=== PATIENT | female | born 1990 | race African-American/Black ===

== ENCOUNTER → 2017-12-24 | Outpatient (CLI) | payer OTHER ==
--- NOTE | 2017-12-25 08:56 | USB ---
Reason for exam: clinical finding. History: Family history of breast cancer in maternal grandmother. Indicated problem(s): lump or thickening in the left breast. 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 US Breast LT Left breast ultrasound includes all four quadrants, the retroareolar region and axilla. Finding demonstrates duct ectasia at 1 o'clock and at the nipple. Prominent but non-enlarged lymph nodes at the axilla. The 3 palpable areas at 11 o'clock show minimal skin thickening. No solid or cystic lesion. These results were verbally communicated with the patient and result sheet given to the patient on 12/24/17. ASSESSMENT: Benign, BI-RAD 2 RECOMMENDATION: Routine screening mammogram of both breasts at age 39. (or sooner if clinically indicated) Manage on a clinical basis. Dermatology referral can be considered for cutaneous lesions.
== END | disposition home or self-care (01) ==
LOC: RADUSWWP 15:11
PROVIDERS: ATTEND Family Medicine
DX: N64.4 Mastodynia (principal)

== ENCOUNTER 2020-04-29 06:00 | Inpatient (IN) | payer OTHER ==
[2020-04-29] MEDS ORDERED: CARBOPROST TROMETHAMINE 250 MCG/ML 1 ML AMP IM PRN (06:31)
[2020-04-29] MEDS ORDERED: LIDOCAINE 0.5% (PF) 5 MG/ML (50 ML SDV) SQ PRN (06:31)
[2020-04-29] MEDS ORDERED: METHYLERGONOVINE 0.2 MG/ML 1 ML AMP IM PRN (06:31)
[2020-04-29] MEDS ORDERED: OXYTOCIN 10 UNIT/ML 1 ML VIAL IM PRN (06:31)
[2020-04-29] MEDS ORDERED: CLINDAMYCIN 900 MG in DEXTROSE 5% IN WATER 50 ML IVPB STA ×2 (06:31)
[2020-04-29] MEDS ORDERED: TERBUTALINE 1 MG/ML VIAL SQ PRN (06:31)
[2020-04-29 06:44] LABS: Basophils % (A) 0 %; Eosinophils # (A) 0.1 k/uL (0-0.7); Eosinophils % (A) 1 %; HCT 31.9 % (34.0-46.0); HGB 10.6 gm/dL (11.4-16.0); Lymphocytes % (A) 29 %; MCH 26.9 pg (25.0-35.0); MCHC 33.2 g/dL (31.0-37.0); MCV 81.1 fL (80.0-100.0); Mean Platelet Volume 7.7; Monocytes # (A) 0.3 k/uL (0-1.0); Monocytes % (A) 5 %; Neutrophils # (A) 4.3 k/uL (1.3-7.7); Neutrophils % (A) 63 %; Platelet Count 296 k/uL (150-450); RBC 3.93 m/uL (3.80-5.40); RDW 13.7 % (11.5-15.5); WBC 6.8 k/uL (3.8-10.6)
[2020-04-29] MEDS ORDERED: OXYTOCIN 30 UNITS/500 ML NS 30 UNIT in SALINE 1 500ML.BAG IV SCH (06:45)
[2020-04-29] MEDS: LACTATED RINGERS 1,000 ML IV SCH ×2 (06:51→12:26)
[2020-04-29 07:04] VITALS: RESP 16
--- NOTE | 2020-04-29 10:33 | P.HPOB ---
History of Present Illness H&P Date: 04/29/20 Chief Complaint: IUP at 39-0/7 weeks This is a 29-year-old 2 para 1001 at 39 0/7 weeks that presents to labor and delivery for elective induction of labor. Patient has a past medical history of lupus is in been followed with maternal medicine and myself. 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 In addition shortening of the long bones was noted also. Plan follow-up after delivery per [facility]. Patient does note good movement this morning, she denies contractions or loss of fluid. On blood work she has a blood type of O+, rubella immune, hepatitis B surface antigen negative, HIV negative, RPR nonreactive, GBS positive. Patient does have a history of HSV and she has been on Valtrex. Review of Systems Constitutional: Denies chills, Denies fatigue, Denies fever Ears, nose, mouth and throat: Denies headache Cardiovascular: Reports leg edema, Denies chest pain Respiratory: Denies dyspnea Gastrointestinal: Denies constipation, Denies diarrhea, Denies nausea, Denies vomiting Genitourinary: Reports Past Medical History Past Medical History: Asthma Additional Past Medical History / Comment(s): uti's, Lupus,anemia, HSV History of Any Multi-Drug Resistant Organisms: None Reported Past Surgical History: No Surgical Hx Reported Past Anesthesia/Blood Transfusion Reactions: No Reported Reaction Past Psychological History: Anxiety Smoking Status: Former smoker Past Alcohol Use History: None Reported Past Drug Use History: None Reported - Past Family History Mother Family Medical History: Hypertension Medications and Allergies Home Medications Medication Instructions Recorded Confirmed Type Acyclovir 1 tab PO BID 04/29/20 04/29/20 History Aspirin [[place] Aspirin EC] 1 tab PO DAILY 04/29/20 04/29/20 History Hydroxychloroquine Sulfate 1 tab PO BID 04/29/20 04/29/20 History [Plaquenil] Pnv,Calcium 72/Iron/Folic Acid 1 tab PO DAILY 04/29/20 04/29/20 History [ Plus Tablet] Allergies Allergy/AdvReac Type Severity Reaction Status Date / Time Penicillins Allergy Unknown Verified 06/15/14 11:08 Exam Osteopathic Statement: *. No significant issues noted on an osteopathic structural exam other than those noted in the History and Physical/Consult. Vital Signs Temp Pulse Resp BP Pulse Ox 04/29/20 06:24 98.2 F 83 16 141/86 99 Intake and Output 04/28/20 04/29/20 04/29/20 22:59 06:59 14:59 Other: Weight 87.543 kg Targeted physical exam is performed on this date in general this patient is noted to be well-nourished well-developed female in no acute distress, Breathing is noted to be nonlabored, heart has regular rate and rhythm, abdomen is gravid and appropriate for gestational age, heart tones returned be category 1 she is karin irregularly, on cervical exam she is noted to be 4-5/50/-2 amniotomy is performed and clear fluid was obtained. Results Result Diagrams: 04/29/20 06:30 Abnormal Lab Results - Last 24 Hours (Table) 04/29/20 Range/Units 06:30 Hgb 10.6 L (11.4-16.0) gm/dL Hct 31.9 L (34.0-46.0) % Assessment and Plan (1) Term Current Visit: Yes Status: Acute Code(s): Z34.90 - ENCNTR FOR SUPRVSN OF NORMAL , UNSP, UNSP TRIMESTER SNOMED Code(s): 58215714 (2) Lupus Current Visit: Yes Status: Acute Code(s): M32.9 - SYSTEMIC LUPUS ERYTHEMATOSUS, UNSPECIFIED SNOMED Code(s): 419615552 (3) HSV (herpes simplex virus) anogenital infection Current Visit: Yes Status: Acute Code(s): A60.9 - ANOGENITAL HERPESVIRAL INFECTION, UNSPECIFIED SNOMED Code(s): 016601234 (4) Asthma Current Visit: Yes Status: Acute Code(s): J45.909 - UNSPECIFIED ASTHMA, UNCOMPLICATED SNOMED Code(s): 629726885 (5) GBS (group B streptococcus) infection Current Visit: Yes Status: Acute Code(s): A49.1 - STREPTOCOCCAL INFECTION, UNSPECIFIED SITE SNOMED Code(s): 951129633 Plan: Patient is admitted to labor and delivery for elective induction of labor. Pitocin is started per hospital protocol. In addition antibiotics are begun given her GBS positive status. Patient does desire epidural at some point for analgesia throughout labor. Anticipate spontaneous vaginal delivery later today.
[2020-04-29] MEDS ORDERED: ROPIVACAINE 100 MG, fentaNYL (PF) 200 MCG in SODIUM CHLORIDE 0.9% 76 ML EPIDURAL ONE (12:30)
[2020-04-29] MEDS ORDERED: BENZOCAINE/MENTHOL SPRAY 1 GM/SPRAY AEROSOL TOPICAL PRN (13:54)
[2020-04-29] MEDS ORDERED: LANOLIN CREAM 5 GM TUBE TOPICAL PRN (13:54)
[2020-04-29] MEDS ORDERED: HYDROCORTISONE 2.5% RECTAL CREAM 30 GM TUBE RECTAL PRN (13:54)
[2020-04-29] MEDS ORDERED: WITCH HAZEL 1 EACH MED..PAD TOPICAL PRN (13:54)
[2020-04-29] MEDS ORDERED: ZOLPIDEM 5 MG TAB PO PRN (13:54)
[2020-04-29] MEDS ORDERED: HYDROcodone/APAP 5-325MG 1 EACH TAB PO PRN (13:54)
[2020-04-29] MEDS ORDERED: diphenhydrAMINE 25 MG CAP PO PRN (13:54)
[2020-04-29] MEDS ORDERED: diphenhydrAMINE 50 MG CAP PO PRN (13:54)
[2020-04-29] MEDS ORDERED: SIMETHICONE 80 MG CHEWABLE PO PRN (13:54)
[2020-04-29] MEDS ORDERED: diphenhydrAMINE 50 MG/ML 1 ML VIAL IVP PRN ×2 (13:54)
[2020-04-29] MEDS ORDERED: OXYTOCIN 20 UNITS/1000 ML NS 1,000 ML IV SCH (14:00)
[2020-04-29] MEDS ORDERED: SUCROSE 24% 2 ML AMP PO PRN (14:03)
[2020-04-29] MEDS ORDERED: ACETAMINOPHEN 40 MG/1.25 ML ORAL.SYRG PO PRN (14:03)
[2020-04-29] MEDS ORDERED: LIDOCAINE (PF) 10 MG/ML 2 ML VIAL SQ PRN (14:03)
--- NOTE | 2020-04-29 14:03 | P.PROBDLV ---
Vaginal Delivery Note - . Vaginal Delivery Note: This pleasant 29-year-old 2 para 1001 presented to labor and delivery at 39-2/7 weeks for elective induction of labor. Patient has a known history of lupus has been being followed by maternal- medicine and myself. 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 Patient was admitted to labor and delivery Pitocin induction of labor was begun per hospital protocol. Once regular contractions were noted patient underwent amniotomy and clear fluid was obtained. Patient became uncomfortable requesting epidural placement soon afterwards. Epidural was placed without difficulty by the anesthesia department. Patient progressed to complete began pushing and had a normal spontaneous vaginal delivery of viable male infant at 1330, infant was delivered through a nuchal cord. After two-minute delayed the umbo cord was doubly clamped and cut, cord blood was then taken. The placenta was then delivered spontaneously intact with a three-vessel cord being noted. The uterus is noted to be firm and below the umbilicus at this time. On inspection the patient's vaginal vault a right labial laceration was noted this was repaired with 0 chromic in a running fashion. Hemostasis was appreciated. A moderate amount of bleeding was noted, and the uterus is noted to be boggy therefore Methergine was given. The uterus is noted to be firm and below the lump umbilicus at this time, and bleeding was noted to be slowed. On further inspection the vaginal vault no further lacerations were noted. All counts were noted to be correct 2 Patient and tolerated delivery well and are resting comfortably.
[2020-04-29] MEDS ORDERED: CLINDAMYCIN 900 MG in DEXTROSE 5% IN WATER 50 ML IVPB SCH ×2 (15:00)
[2020-04-29] MEDS: SENNOSIDES-DOCUSATE SODIUM 1 EACH TAB PO SCH (20:27)
[2020-04-29] MEDS: IBUPROFEN 600 MG TAB PO PRN (22:48)
[2020-04-29] MEDS: ACETAMINOPHEN TAB 325 MG TAB PO PRN (23:47)
[2020-04-30] MEDS: IBUPROFEN 600 MG TAB PO PRN ×2 (03:57→10:25)
[2020-04-30] MEDS: ACETAMINOPHEN TAB 325 MG TAB PO PRN (05:22)
[2020-04-30 05:43] LABS: Basophils % (A) 0 %; Eosinophils % (A) 0 %; HCT 29.2 % (34.0-46.0); HGB 9.6 gm/dL (11.4-16.0); Lymphocytes # (A) 1.7 k/uL (1.0-4.8); Lymphocytes % (A) 15 %; MCHC 32.8 g/dL (31.0-37.0); MCV 82.3 fL (80.0-100.0); Mean Platelet Volume 7.8; Monocytes # (A) 0.4 k/uL (0-1.0); Monocytes % (A) 4 %; Neutrophils # (A) 9.1 k/uL (1.3-7.7); Neutrophils % (A) 79 %; Platelet Count 269 k/uL (150-450); RBC 3.54 m/uL (3.80-5.40); RDW 13.7 % (11.5-15.5); WBC 11.5 k/uL (3.8-10.6)
[2020-04-30] MEDS: SENNOSIDES-DOCUSATE SODIUM 1 EACH TAB PO SCH (07:55)
[2020-04-30 08:14] VITALS: BP 118/82; PULSE 78; TEMP 97.3
--- NOTE | 2020-04-30 09:17 | P.DS ---
Providers Date of admission: 04/29/20 06:08 Expected date of discharge: 04/30/20 Attending physician: Dee Sánchez Primary care physician: Stated None - Discharge Diagnosis(es) (1) Term Current Visit: Yes Status: Acute (2) Lupus Current Visit: Yes Status: Acute (3) HSV (herpes simplex virus) anogenital infection Current Visit: Yes Status: Acute (4) Asthma Current Visit: Yes Status: Acute (5) GBS (group B streptococcus) infection Current Visit: Yes Status: Acute (6) Status post vaginal delivery Current Visit: Yes Status: Acute Hospital Course: This 29-year-old 2 now para 2 presented to labor and delivery on 04/29 for planned elective induction of labor. Patient was 39 weeks and 0 days at that time. Patient was admitted Pitocin induction of labor was begun per hospital protocol. Patient is a known history of lupus and was being followed by maternal- medicine. Of note throughout this the infant was noted to have questionable absence of the corpus callosum, ultrasound of the infant was recommended. Patient is understanding of this. In addition the long bones of the were noted be shortened throughout ultrasound evaluation per [facility] questionable significance. For further details on this patient please see the full dictated history and physical. Patient progressed through labor eventually undergoing amniotomy and clear fluid was obtained. Patient became uncomfortable requesting epidural placement. Epidural was placed by the anesthesia department. Patient progressed to complete began pushing and had normal spontaneous vaginal delivery of a viable male at 1330, weight of 6 lbs. 3 oz. and Apgars of 9 and 9 at one and 5 minutes respectively. Patient did sustain a right labial laceration which was repaired in the usual fashion with 3-0 Rapide. Patient has done well . On this post day #1 she is ambulating and voiding without difficulty. She is tolerating a regular diet without nausea or vomiting. She states her pain is well-controlled. She is bottle feeding. She denies concerns and would like discharge home today. Patient Condition at Discharge: Good Plan - Discharge Summary New Discharge Prescriptions: No Action Acyclovir 1 tab PO BID Aspirin [[place] Aspirin EC] 1 tab PO DAILY Hydroxychloroquine Sulfate [Plaquenil] 1 tab PO BID Pnv,Calcium 72/Iron/Folic Acid [ Plus Tablet] 1 tab PO DAILY Discharge Medication List Acyclovir 1 tab PO BID 04/29/20 [History] Aspirin [[place] Aspirin EC] 1 tab PO DAILY 04/29/20 [History] Hydroxychloroquine Sulfate [Plaquenil] 1 tab PO BID 04/29/20 [History] Pnv,Calcium 72/Iron/Folic Acid [ Plus Tablet] 1 tab PO DAILY 04/29/20 [History] Follow up Appointment(s)/Referral(s): Dee Sánchez DO [Doctor of Osteopathic Medicine] - 4 Weeks Patient Instructions/Handouts: Vaginal Delivery (DC), Vaginal Delivery (GEN) Discharge Disposition: HOME SELF-CARE
== END 2020-04-30 14:15 | disposition home or self-care (01) | DRG 805 ==
LOC: 4FBP 06:08
PROVIDERS: ADMIT Obstetrics & Gynecology Obstetrics; ATTEND Obstetrics & Gynecology Obstetrics
PROC: 10E0XZZ Delivery of Products of Conception, External Approach (ICD-10-PCS; principal; 2020-04-29)
PROC: 3E033VJ Introduction of Other Hormone into Peripheral Vein, Percutaneous Approach (ICD-10-PCS; 2020-04-29)
PROC: 10907ZC Drainage of Amniotic Fluid, Therapeutic from Products of Conception, Via Natural or Artificial Opening (ICD-10-PCS; 2020-04-29)
PROC: 0HQ9XZZ Repair Perineum Skin, External Approach (ICD-10-PCS; 2020-04-29)
PROC: 3E0R3BZ Introduction of Anesthetic Agent into Spinal Canal, Percutaneous Approach (ICD-10-PCS; 2020-04-29)
DX: O99.89 Other specified diseases and conditions complicating pregnancy, childbirth and the puerperium (principal); Q04.0 Congenital malformations of corpus callosum; Z37.0 Single live birth; M32.9 Systemic lupus erythematosus, unspecified; O99.824 Streptococcus B carrier state complicating childbirth; O70.0 First degree perineal laceration during delivery; O69.81X0 Labor and delivery complicated by cord around neck, without compression, not applicable or unspecified; J45.909 Unspecified asthma, uncomplicated; A60.9 Anogenital herpesviral infection, unspecified; O99.02 Anemia complicating childbirth; O98.32 Other infections with a predominantly sexual mode of transmission complicating childbirth; O99.52 Diseases of the respiratory system complicating childbirth; Z3A.39 39 weeks gestation of pregnancy; Z79.82 Long term (current) use of aspirin; Z79.899 Other long term (current) drug therapy; Z87.891 Personal history of nicotine dependence; Z86.59 Personal history of other mental and behavioral disorders; Z87.440 Personal history of urinary (tract) infections; Z88.0 Allergy status to penicillin; Z82.49 Family history of ischemic heart disease and other diseases of the circulatory system
CPT/HCPCS: 85025; 86850; 86900; 86901; 88307